=== PATIENT | male | born 2000 | race Two or more races ===

== ENCOUNTER 2019-10-28 08:21 | Emergency (ER) | payer SELFPAY ==
[~2019-10-28] VITALS: Ht 165.1 cm; Wt 71.0 kg
[2019-10-28 08:37] VITALS: BP 146/66
== END 2019-10-28 09:53 | disposition home or self-care (01) ==
LOC: ER 08:21
DX: S93.492A Sprain of other ligament of left ankle, initial encounter (principal); X50.1XXA Overexertion from prolonged static or awkward postures, initial encounter; Y93.51 Activity, roller skating (inline) and skateboarding; Y92.89 Other specified places as the place of occurrence of the external cause
CPT/HCPCS: 73610; 99283